=== PATIENT | female | born 1960 | race Caucasian/White ===

== ENCOUNTER 2016-12-11 21:51 | Emergency (ER) | payer OTHER ==
[~2016-12-11] VITALS: Ht 172.7 cm; Wt 72.0 kg
[~2016-12-11 21:51] MED LIST: ALPR0.5T PO
[2016-12-11 22:01] VITALS: BP 108/74; PULSE 86; RESP 16; O2SAT 98
--- NOTE | 2016-12-11 22:14 | ED.REPORT ---
HPI-Eye Problem Date of Service Dec 11, 2016 ED Provider: Carter Salas MD Patient is an otherwise healthy 56 year old female who presents to the ED complaining of L eye pressure onset 1800 this evening. Associated symptoms include long floaters, light flashes, and a greyed out torrey spot that comes and goes. She denies R eye pain, discharge, or any other symptoms. She denies a mechanism of injury Her symptoms are relieved by wearing an eye patch. Nursing Notes Stated Complaint: PAIN IN LEFT EYE Chief Complaint: Eye Nursing Notes Reviewed: Yes Allergies: Coded Allergies: No Known Allergies (Verified , 07/21/13) Scheduled PRN Alprazolam (Xanax) 0.5 Mg Tablet 0.5 MG PO HS PRN PRN For Anxiety General Time Seen by MD: 22:13 Chief Complaint Left eye affected Hx Obtained From: Patient Arrived By: Walk-in Sudden in Onset?: Yes Onset Occurred: 1 - 4 hours ago Symptom Duration: Since onset Location: : Eye left Quality: Pressure Severity: Current: Pain level 3 out of 10 Severity: Maximum: Pain level 3 out of 10 Relieved by: Dark room Related History: Denies: Recent eye trauma Immunizations: Unknown Past Medical History Past Medical History Irritable bowels Past Surgical History None reported Smoking History Former Smoker Social History Alcohol Use: 1-3 per day Other Social History: Good social support, Ambulatory Status Independent Review of Systems Review of Systems Note: +Garcia spot in L eye, light flashes, long floaters Eyes: Reports: Eye pain left, Denies: Discharge bilateral, Eye pain right Complete sys rev & neg: except as marked. Physical Exam Initial Vital Signs Vital Signs (First) Date Time Temp Pulse Resp B/P Pulse Ox O2 Delivery O2 Flow Rate FiO2 12/11/16 22:01 36.4 86 16 108/74 98 Room Air Initial VS: Reviewed, Vital signs normal General / Const: Well-developed, Well-nourished ENT: Conjunctiva normal Neck: Full range of motion Respiratory: No respiratory distress Cardiovascular: Regular rate & rhythm Skin: Warm, Dry Neurologic: Alert, Oriented, Nonfocal Psychiatric: Mood/affect normal, Behavior normal, Normal thought content Head / Eyes: Atraumatic, Normocephalic, PERRL, Conjunctiva NL Fundus normal. Anterior chamber clear. No limbic or scleral injection Re-Eval/Medical Decision Med Decision/Clinical Course 56-year-old with symptoms of a spontaneous retinal detachment. Concerning is the involvement of central vision with an intermittent anderson gambell. Discussed with ophthalmology who will see her first thing this morning. Nothing by mouth status. Directed to call at 9 AM for urgent visit shortly after. Re-Evaluation/Progress : Time of Eval: 22:34 Re-Evaluation/Progress Note: Discussed plan for discharge with f/u tomorrow. Patient understands and agrees with plan. All questions addressed at this time. Consultation : Referral / Consult Name: Cortney Leslie MD Consulted With: Flight Crew Scheduler Call Returned at: 22:28 Demolition Crane Operator: Will see in office, Agrees with eval, Agrees with plan Note: Discussed pt's case. Will see first thing in the morning. Counseled Regarding: Diagnosis, Need for follow-up, When/why to return to ED Discharge & Departure Shift Change Sign-Out Response to Therapy: Unchanged Primary Impression: Retinal detachment Laterality: left Qualified Code: H33.22 - Serous retinal detachment, left eye Disposition: Home Discharge Condition All VS Reviewed: Yes Condition: Stable Additional Instructions: I suspect a retinal detachment. This needs urgent evaluation was morning. Call Dr. Leslie's office for the first available appointment this morning. Call at 9 AM sharp. Meantime, nothing to eat or drink, as you may need a procedure this morning. Rest. Avoid strain and sudden movement. Follow-up with your doctor in the office also. Return if any immediate issues. Referrals: Joseph Joseph MD (PCP) Cortney Leslie MD Scribe Attestation Portions of this note were transcribed by Андрей Saba. I, Dr. Salas personally performed the history, physical exam and medical decision-making; I reviewed and confirmed the accuracy of the information in the transcribed note. Signed by: Андрей Saba 12/11/2016, 2240 copies to: Cortney Leslie MD; Joseph Joseph MD, Christopher W MD Dec 11, 2016 22:14 АНДРЕЙ SABA Dec 11, 2016 22:22
== END 2016-12-11 22:48 | disposition home or self-care (01) ==
LOC: SED 21:51
DX: H33.22 Serous retinal detachment, left eye (principal); Z87.891 Personal history of nicotine dependence